=== PATIENT | male | born 1950 | race Caucasian/White ===

== ENCOUNTER 2016-11-26 05:56 | Outpatient (CLI) | payer MEDICARE ==
[2016-11-26 06:26] LABS: #Basophils 0.1 thou/uL (0.0-0.2); #Eosinphils 0.3 thou/uL (0.0-0.7); #Lymphocytes 2.1 thou/uL (1.20-3.40); #Monocytes 0.7 thou/uL (0.11-0.59); #Neutrophils 4.3 thou/uL (1.40-6.50); %Basophils 1.3 % (0.0-1.0); %Lymphocytes 28.6 % (21.0-51.0); %Monocytes 8.7 % (0.0-10.0); %Neutrophils 57.4 % (42.0-75.0); Hemoglobin 16.1 g/dL (14.0-18.0); Mean Corpuscular HGB CONC 34.6 g/dL (32.0-36.0); Mean Corpuscular Hemoglobin 29.8 pg (27.0-31.0); Mean Corpuscular Volume 86.1 fl (80.0-94.0); Mean Platelet Volume 6.6 fL (7.4-10.4); Platelet Count 268 thou/uL (130-400); Red Blood Cell (RBC) Count 5.39 mill/uL (4.70-6.10); White Blood Cell (WBC) Count 7.5 thou/uL (4.8-10.8)
[2016-11-26 06:39] LABS: ALT (SGPT) 27 U/L (8-55); AST (SGOT) 21 U/L (5-34); Alkaline Phosphatase 60 U/L (40-150); Anion Gap 15 mmol/L (10-20); BUN (Urea Nitrogen) 12 mg/dL (8.4-25.7); Bilirubin, Total 0.6 mg/dL (0.2-1.2); Calc. Creatinine Clearance 0 mL/min (70-130); Calcium 8.9 mg/dL (7.8-10.44); Carbon Dioxide 24 mmol/L (23-31); Chloride 111 mmol/L (98-107); Cholesterol 152 mg/dl (< 200 Desired); Estimated GFR-MDRD 83; Globulin 2.6 g/dL (2.4-3.5); Glucose 91 mg/dL (80-115); HDL Cholesterol 38 mg/dL (>60 Neg Risk); LDL Cholesterol, Calculated 79 mg/dL; Potassium 3.9 mmol/L (3.5-5.1); Protein, Total 6.6 g/dL (5.8-8.1); Sodium 146 mmol/L (136-145); Triglycerides 177 mg/dL (Less than 150)
== END 2016-11-26 05:57 | disposition home or self-care (01) ==
LOC: BURLAB 05:56
PROVIDERS: ATTEND Internal Medicine Cardiovascular Disease
DX: E78.2 Mixed hyperlipidemia (principal); I25.10 Atherosclerotic heart disease of native coronary artery without angina pectoris; Z79.899 Other long term (current) drug therapy
CPT/HCPCS: 36415; 80053; 80061; 85025

== ENCOUNTER 2018-12-25 09:16 | Outpatient (CLI) | payer MEDICARE, OTHER ==
--- NOTE | 2018-12-25 11:37 | RAD ---
RIGHT KNEE 4 VIEWS: Date: 12/25/18 HISTORY: Knee pain. FINDINGS: There are mild degenerative changes. Mild narrowing of medial joint space. Mild spurring from the med ial joint compartment. No fracture or acute abnormality. No significant joint effusion. IMPRESSION: There are mild degenerative changes, most prominent at the medial joint. POS: [facility]
== END 2018-12-25 09:17 | disposition home or self-care (01) ==
LOC: BURRAD 09:16
PROVIDERS: ATTEND Family Medicine
DX: M25.561 Pain in right knee (principal); M17.11 Unilateral primary osteoarthritis, right knee

== ENCOUNTER 2019-03-30 09:19 | Outpatient (CLI) | payer MEDICARE, OTHER ==
--- NOTE | 2019-03-30 16:35 | ULT ---
BILATERAL RENAL ULTRASOUND: 03/30/19 Ultrasonography of the kidneys was performed was performed for evaluation of hematuria. No prior mya ms were available for comparison. The right kidney measures 13.5 x 4.8 x 5.7 cm and appears normal. No mass, hydronephrosis, or cortica l thinning was seen. The left kidney measures 15.8 x 8.4 x 9.0 cm. A small 2.1 cm cyst is seen in its inferior pole, but then a very large 10.1 x 7.3 x 8.0 cm cyst is seen more centrally in a parapelvic location. There may be some septations in this large cyst. No solid masses were detected. The bladder voided nearly completely. Ureteral jets were noted. No internal masses were seen. IMPRESSION: 1. At least two cysts in the left kidney, one of which is very large, parapelvic in location, an d measures 10.1 cm. It may have some septations in it. 2. No other findings to explain hematuria. 3. Bladder wall thickness may be slightly increased but diffusely so. Comment: The very large left parapelvic cyst is almost purely cystic but might have some septations i n it. I feel the malignant potential for this finding is quite low. Nevertheless, in the context of h ematuria, it might be prudent to go ahead and do a renal CT with multiphase contrast to remove any do ubts of other pathology here if hematuria persists. POS: HOME
== END 2019-03-30 09:20 | disposition home or self-care (01) ==
LOC: BURULT 09:19
PROVIDERS: ATTEND Family Medicine
DX: R31.9 Hematuria, unspecified (principal); N28.1 Cyst of kidney, acquired; N32.89 Other specified disorders of bladder
CPT/HCPCS: 76770